=== PATIENT | male | born 1965 | race Caucasian/White ===

== ENCOUNTER → 2023-10-24 | Outpatient (CLI) | payer MEDICAID ==
--- NOTE | 2023-11-20 12:13 | MR ---
Patient: Kael Mane Ordering Physician: Unknown, Unknown ID: [id number] Phone, Pager: Phone: N/ A Pager: N/A : 1965 Age/Gender: 58Y, M Primary Location: N/A Procedure: MR shoulder LT con Ra dy Date: 10/24/2023 4:54:23 PM Order #: N/[id number] EXAMINATION TYPE: MR shoulder LT w con DATE OF EXAM: 10/24/2023 COMPARISON: None HISTORY: Left shoulder pain difficulty raising arm overhead for 45 years. Recent injury October 19. TECHNIQUE: Multiplanar, multisequence imaging of the left shoulder is performed without contrast. FINDINGS: Rotator Cuff: Full-thickness retracted tear of the supraspinatus tendon with 1.2 cm gap coronal image 12. Intact infraspinatus tendon. Intact subscapularis tendon. Rotator cuff muscle bulk preserved. Acromioclavicular Joint: Moderate narrowing and spurring with moderate to severe capsular hypertrophy . Loss of underlying fat plane noted. Glenohumeral Joint: Suboptimal intra-articular injection with majority of contrast seen anterior to t he subscapularis noted. Narrowing is seen. No significant spurring. No significant joint effusion. Labrum: Some increased signal superior labrum suggests degenerative tear. Biceps Tendon: The long head of biceps is in normal location within bicipital groove. Bone marrow signal: Heterogeneous increased T2 signal involving the inferior osseous glenoid. Other: No additional significant abnormality is appreciated. IMPRESSION: Suboptimal study. Full-thickness retracted tear of the supraspinatus tendon. Degenerative superior la bral tear. 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
== END | disposition home or self-care (01) ==
LOC: RADMRIMAIN 19:15
PROVIDERS: ATTEND Orthopaedic Surgery
DX: M19.012 Primary osteoarthritis, left shoulder (principal); M25.812 Other specified joint disorders, left shoulder; M75.122 Complete rotator cuff tear or rupture of left shoulder, not specified as traumatic